=== PATIENT | female | born 1975 | race Caucasian/White ===

== ENCOUNTER 2023-02-21 16:00 | Emergency (ER) | payer OTHER ==
[~2023-02-21] VITALS: Ht 172.7 cm; Wt 85.3 kg
[2023-02-21 17:57] LABS: BASO % 0.3 % (0.0-1.0); EOS % 0.2 % (1.0-4.0); LYMPH # 1.7 10*3/uL (1.3-4.4); LYMPH % 16.7 % (27.0-41.0); MEAN CELL VOLUME 89.9 fl (81.0-99.0); MEAN CORPUSCULAR HGB 29.7 pg (27.0-31.0); MONO # 0.6 10*3/uL (0.1-1.0); MONO % 6.3 % (3.0-9.0); NEUT # 7.6 10*3/uL (2.3-7.9); NEUT % 76.2 % (47.0-73.0); PLATELET COUNT AUTOMATED 294 10*3/uL (130-400); RED BLOOD COUNT 4.45 10*6/uL (4.10-5.10); RED CELL DISTRI WIDTH 14.3 % (0-14.5); WHITE BLOOD COUNT 9.9 10*3/uL (4.8-10.8)
[2023-02-21 18:08] LABS: ACT PARTIAL THROMBO TIME 28.2 SECONDS (20.0-32.1)
[2023-02-21 18:23] LABS: ALKALINE PHOSPHATASE 86 U/L (46-116); BUN 11 mg/dl (9-23); CHLORIDE 107 mmol/L (98-107); POTASSIUM 3.7 mmol/L (3.4-5.1); SGPT/ALT 20 U/L (5-49); TOTAL PROTEIN 7.7 gm/dL (6.0-8.0)
== END 2023-02-21 20:11 | disposition home or self-care (01) ==
LOC: ED 16:00
PROVIDERS: Nurse Practitioner Family
DX: R07.89 Other chest pain (principal); F41.9 Anxiety disorder, unspecified; Z88.5 Allergy status to narcotic agent; Z88.8 Allergy status to other drugs, medicaments and biological substances

== ENCOUNTER 2024-05-09 13:43 | Emergency (ER) | payer OTHER ==
[~2024-05-09] VITALS: Ht 172.7 cm; Wt 85.7 kg
[2024-05-09 14:12] LABS: BASO % 0.3 % (0.0-1.0); EOS % 0.2 % (1.0-4.0); HEMATOCRIT 40.7 % (37.0-47.0); MEAN CELL VOLUME 89.1 fl (81.0-99.0); MEAN CORPUSCULAR HGB 29.1 pg (27.0-31.0); MEAN CORPUSCULAR HGB CONC 32.7 g/dl (33.0-37.0); MEAN PLATELET VOLUME 9.6 fl (9.6-12.3); MONO # 0.6 10*3/uL (0.1-1.0); MONO % 9.3 % (3.0-9.0); NEUT # 3.8 10*3/uL (2.3-7.9); NEUT % 57.9 % (47.0-73.0); PLATELET COUNT AUTOMATED 294 10*3/uL (130-400); RED BLOOD COUNT 4.57 10*6/uL (4.10-5.10); RED CELL DISTRI WIDTH 13.2 % (0-14.5); WHITE BLOOD COUNT 6.6 10*3/uL (4.8-10.8)
[2024-05-09 14:24] LABS: ACT PARTIAL THROMBO TIME 27.7 SECONDS (20.0-32.1)
[2024-05-09 14:38] LABS: BILIRUBIN Negative (Negative); BLOOD Negative (Negative); CLARITY Clear (Clear); COLOR Yellow (Yellow); GLUCOSE Negative (Negative); KETONE Negative (Negative); LEUKO ESTERASE Negative (Negative); NITRITE Negative (Negative); PH 7.5 (4.5-8.0); UROBILINOGEN 0.2 E.U./dl (0.0-1.0)
[2024-05-09 14:48] LABS: ALKALINE PHOSPHATASE 96 U/L (46-116); BUN 14 mg/dl (9-23); CHLORIDE 104 mmol/L (98-107); POTASSIUM 3.6 mmol/L (3.4-5.1); SGPT/ALT 16 U/L (5-49); TOTAL PROTEIN 7.6 gm/dL (6.0-8.0)
[2024-05-09 14:48] LABS: RBC 0-2 rbc/hpf (0-2); WBC 0-2 wbc/hpf (0-5)
== END 2024-05-09 17:03 | disposition home or self-care (01) ==
LOC: ED 13:43
PROVIDERS: Internal Medicine
DX: R42 Dizziness and giddiness (principal); F41.9 Anxiety disorder, unspecified; M79.662 Pain in left lower leg; R61 Generalized hyperhidrosis; R07.89 Other chest pain; Z88.5 Allergy status to narcotic agent; Z88.8 Allergy status to other drugs, medicaments and biological substances

== ENCOUNTER 2024-12-06 20:26 | Observation (INO) | payer OTHER ==
[~2024-12-06] VITALS: Ht 172.7 cm; Wt 88.9 kg
[2024-12-06 20:31] VITALS: BP 153/82
[2024-12-06 21:24] LABS: BASO # 0.0 10*3/uL (0.0-0.1); BASO % 0.4 % (0.0-1.0); EOS # 0.0 10*3/uL (0.0-0.4); EOS % 0.0 % (1.0-4.0); MEAN CELL VOLUME 88.8 fl (81.0-99.0); MEAN CORPUSCULAR HGB 29.5 pg (27.0-31.0); MEAN PLATELET VOLUME 9.7 fl (9.6-12.3); MONO # 0.5 10*3/uL (0.1-1.0); MONO % 9.7 % (3.0-9.0); NEUT # 4.7 10*3/uL (2.3-7.9); NEUT % 83.4 % (47.0-73.0); NUCLEATED RED BLOOD CELL 0.0 % (0.0-0.0); NUCLEATED RED BLOOD CELL 0.0 10*3/uL (0.0-0.0); PLATELET COUNT AUTOMATED 233 10*3/uL (130-400); RED CELL DISTRI WIDTH 13.2 % (0-14.5)
[2024-12-06 21:48] LABS: BUN 15 mg/dl (9-23); CPK 74 U/L (34-171)
[2024-12-06] MEDS ORDERED: NITROGLYCERIN 1 IN PACKET T ONE (22:15)
[2024-12-06] MEDS ORDERED: ASPIRIN 325 MG ENTERIC COATED PO ONE (22:15)
[2024-12-06 23:40] VITALS: BP 120/78
[2024-12-07] MEDS ORDERED: XANAX0.5 MG PO (00:10)
[2024-12-07] MEDS ORDERED: PRILOSEC20 M1 PO (00:11)
[2024-12-07] MEDS ORDERED: ACETAMINOPHEN 325 MG TAB PO PRN ×2 (00:30→00:50)
[2024-12-07] MEDS ORDERED: BISACODYL 10 MG SUPP R PRN (00:50)
[2024-12-07] MEDS ORDERED: ACETAMINOPHEN 650 MG SUPP R PRN (00:50)
[2024-12-07] MEDS ORDERED: BISACODYL 5 MG TAB PO PRN (00:50)
[2024-12-07] MEDS ORDERED: Ondansetron Hydrochloride 4 MG/2 ML VIAL IV PRN (00:50)
[2024-12-07 06:24] LABS: BUN 11 mg/dl (9-23); FREE T4 1.00 ng/dl (0.89-1.76); LDL CHOLESTEROL 60 mg/dL (9-159); SGPT/ALT 16 U/L (5-49)
[2024-12-07 06:33] LABS: ACT PARTIAL THROMBO TIME 29.1 SECONDS (20.0-32.1)
[2024-12-07] MEDS ORDERED: Regadenoson 0.4 MG/5 ML SYR IV ONE (06:34)
[2024-12-07 06:38] LABS: BASO # 0.0 10*3/uL (0.0-0.1); BASO % 0.5 % (0.0-1.0); EOS # 0.0 10*3/uL (0.0-0.4); EOS % 0.0 % (1.0-4.0); MEAN CELL VOLUME 89.0 fl (81.0-99.0); MEAN CORPUSCULAR HGB 28.9 pg (27.0-31.0); MEAN PLATELET VOLUME 10.4 fl (9.6-12.3); MONO # 0.7 10*3/uL (0.1-1.0); MONO % 15.6 % (3.0-9.0); NEUT # 2.5 10*3/uL (2.3-7.9); NEUT % 57.9 % (47.0-73.0); NUCLEATED RED BLOOD CELL 0.0 % (0.0-0.0); NUCLEATED RED BLOOD CELL 0.0 10*3/uL (0.0-0.0); PLATELET COUNT AUTOMATED 219 10*3/uL (130-400); RED CELL DISTRI WIDTH 13.3 % (0-14.5)
[2024-12-07] MEDS ORDERED: diazePAM 10 MG/2 ML SYR IV ONE (07:40)
[2024-12-07 07:50] VITALS: BP 136/75
[2024-12-07] MEDS ORDERED: ASPIRIN ENTERIC COATED 81 MG TAB PO SCH (10:00)
[2024-12-07 10:05] LABS: VITAMIN D, 25-HYDROXY 27.2 ng/mL (30-100)
[2024-12-07 12:00] VITALS: BP 130/88
[2024-12-07] MEDS ORDERED: VITAMIN D250 MCG PO (14:12)
[2024-12-07] MEDS ORDERED: ATORVASTATIN CALCIUM 40 MG TABLET PO SCH (22:00)
== END 2024-12-07 16:18 | disposition home or self-care (01) ==
LOC: ED 20:26 → 5E 22:41 → EDHOLD 22:41 → 5E 23:23
PROVIDERS: Emergency Medicine; Student in an Organized Health Care Education/Training Program; ADMIT Internal Medicine; ATTEND Internal Medicine
DX: R07.89 Other chest pain (principal); F41.9 Anxiety disorder, unspecified; K21.9 Gastro-esophageal reflux disease without esophagitis; R00.0 Tachycardia, unspecified; R73.9 Hyperglycemia, unspecified; Z79.899 Other long term (current) drug therapy